=== PATIENT | female | born 1985 | race Caucasian/White ===

== ENCOUNTER 2016-08-05 02:21 | Emergency (ER) | payer SELFPAY ==
[~2016-08-05] VITALS: Ht 165.1 cm; Wt 68.0 kg
[2016-08-05 02:26] VITALS: Ht 165.1 cm; Wt 68.0 kg
--- NOTE | 2016-08-05 03:41 | RADRPT ---
PROCEDURE: XR Elbow. CLINICAL INDICATION: elbow pain TECHNIQUE: AP, lateral and oblique views of the right elbow performed. COMPARISON: None. FINDINGS: No fracture dislocation is seen. There is marked volar soft tissue swelling. No definite soft tiss ue gas is seen. The soft tissue edema appears to be more prominent laterally than medially. No def inite elbow effusion. IMPRESSION: Volar and lateral soft tissue edema. RPTAT: HLBE Karley Guzman Physician Date Time Electronically viewed and signed by Karley Guzman Physician on 08/05/2016 03:40 LE/
[2016-08-05] MEDS ORDERED: LIDOCAINE 1% (MDV) 20 ML INJ SC ONE (04:00)
--- NOTE | 2016-08-05 05:04 | ERD ---
ER Documentation Chief Complaint Date/Time DATE: 08/05/16 TIME: 05:03 Chief Complaint R elbow abscess the covers entire joint and incontinent HPI This a 31-year-old female comes in with right elbow swelling. Patient is an IV drug user and is injected heroin as recently as today. Swelling started yesterday and progressively worse. No fevers no chills. No drainage. No other current complaints. ROS All systems reviewed and are negative except as per history of present illness. PMhx/Soc History of Surgery: Yes (c/s) Anesthesia Reaction: No Hx Miscellaneous Medical Probl: Yes (IV drug abuse) Hx Alcohol Use: No Hx Substance Use: Yes (IV HEROIN) Hx Tobacco Use: Yes Smoking Status: Current every day smoker Physical Exam Vitals Vital Signs Date Time Temp Pulse Resp B/P Pulse Ox O2 Delivery O2 Flow Rate FiO2 08/05/16 03:12 99.0 08/05/16 02:26 97.5 100 18 132/79 100 Physical Exam Const: [] Head: Atraumatic Eyes: Normal Conjunctiva ENT: Normal External Ears, Nose and Mouth. Neck: Full range of motion..~ No meningismus. Resp: Clear to auscultation bilaterally Cardio: Regular rate and rhythm, no murmurs Abd: Soft, non tender, non distended. Normal bowel sounds Skin: No petechiae or rashes Back: No midline or flank tenderness Ext: No cyanosis, or edema Neur: Awake and alert Psych: Normal Mood and Affect Results 24 hrs Current Medications Medications (Trade) Dose Ordered Sig/Moisés Route PRN Reason Start Time Stop Time Status Last Admin Dose Admin Lidocaine (Xylocaine 1% (Mdv) 20 ml) 20 ml ONCE ONCE SC 08/05/16 04:00 08/05/16 04:01 DC Procedures/MDM Medical decision making: This patient has what looks to be evidence of a deep tissue cellulitis. At this point she got a dose of clindamycin. We discharged him clindamycin and Bactrim. His follow-up in 2 days for wound check. Incision and drainage was attempted however there is no purulent drainage noted. Departure Diagnosis: Primary Impression: Cellulitis Site of cellulitis: extremity Site of cellulitis of extremity: upper extremity Laterality: right Qualified Code: L03.113 - Cellulitis of right upper extremity Condition: Stable SHARONDA LANGE Aug 05, 2016 05:04
[2016-08-05] MEDS ORDERED: CLIN-73 PO (05:05)
[2016-08-05] MEDS ORDERED: BACTDS PO (05:05)
[2016-08-05] MEDS ORDERED: CLINDAMYCIN 300 MG INJ IVPB ONE (05:30)
[2016-08-05 05:39] VITALS: BP 128/81; PULSE 95; RESP 18; TEMP 98.9
== END 2016-08-05 05:39 | disposition home or self-care (01) ==
LOC: E/R 02:21
DX: L03.113 Cellulitis of right upper limb (principal); F17.210 Nicotine dependence, cigarettes, uncomplicated
CPT/HCPCS: 96374